=== PATIENT | female | born 1990 | race Two or more races ===

== ENCOUNTER 2018-06-10 19:51 | Emergency (ER) | payer MEDICAID ==
[~2018-06-10] VITALS: Ht 157.5 cm; Wt 54.4 kg
[~2018-06-10 19:51] MED LIST: PREN1TAB59 PO
[2018-06-10 20:00] VITALS: BP 108/74
--- NOTE | 2018-06-10 20:10 | ER.PDOC ---
General Chief Complaint: Requesting Medical Care Stated Complaint: LESS THAN 20 WKS Time seen by MD: 20:10 Source: patient Exam Limitations: no limitations History of Present Illness Initial Comments patient having several days of low abdominal cramping and is currently approximately 2 weeks , , she state she was seen at a clinic in another area twice already and had a pos preg test, she states she had a uti and was on amoxicillin, no pain with urnination no blood in urine she stats she has low cramping in pelvis, no vag discharge or fever she does have some mild right flank pain but no upper abd pain. Timing/Duration: other Severity/Quality: mild Location of Pain: pelvic pain : 2 Para: 1 Care: clinic Associated Symptoms: denies symptoms Allergies: Coded Allergies: aripiprazole (Unverified Allergy, Unknown, 09/19/13) Home Meds Reported Medications Vits W-Ca,Fe,Fa(<1MG) ( VITAMINS) 1 Each Tablet, 1 TAB PO DAILY , #90 TAB 3 Refills 04/15/15 Past Medical History Surgical History: no surgical history Review of Systems Constitutional: denies fever EENTM: denies eye pain Respiratory: denies cough Cardiovascular: denies chest pain Gastrointestinal: denies diarrhea, denies vomiting Genitourinary: denies burning, denies discharge, denies dysuria, denies frequency, denies hematuria Musculoskeletal: denies back pain, denies muscle pain Skin: denies rash Psychiatric/Neurological: denies headache Endocrine: denies flushing Hematologic/Lymphatic: denies anemia, denies blood clots Physical Exam General Appearance: No Apparent Distress, WD/WN EENT: eyes nml inspection Neck: nml inspection Cardiovascular/Respiratory: Regular Rate, Rhythm Abdomen: Normal Bowel Sounds, Non Tender Back: nml inspection Extremities: Normal Range of Motion, Non-Tender Neurologic/Psychiatric: No Motor/Sensory Deficits, Alert, Normal Mood/Affect Skin: Normal Color Lymphatic: No Adenopathy Comments mild pain to palpation suprapubic and bilat adnexal no guarding or rebound or hernia Results/Orders Results/Orders Orders - KARMENJERMAINE GUTIERREZ MD Cbc With Auto Diff (06/10/18 20:14) Comprehensive Metabolic Panel (06/10/18 20:14) Us Tv-Ob (06/10/18 20:14) Urinalysis (06/10/18 20:14) Saline Lock (06/10/18 20:14) Hcg, Quantitative (06/10/18 20:14) Us Preg Before 14 Wks (06/10/18 ) Laboratory Tests Test 06/10/18 20:00 06/10/18 20:22 Urine Collection Type VOID Urine Color YELLOW (YELLOW) Urine Appearance CLOUDY (CLEAR) H Urine Bilirubin NEGATIVE MG/DL (NEGATIVE) Urine Ketones NEGATIVE (NEGATIVE) Urine Specific [place] 1.015 (1.005-1.035) Urine pH 8 (5.0-6.0) Urine Protein NEGATIVE (NEGATIVE) Urine Urobilinogen NORMAL (NEGATIVE) Urine Nitrate NEGATIVE (NEGATIVE) Urine Leukocyte Esterase 100/ul 1+ (NEGATIVE) Urine Blood NEGATIVE (NEGATIVE) Urine RBC 0-2 RBC/HPF (NONE SEEN) Urine WBC 0-2 WBC/HPF (0-2) Urine Squamous Epithelial Cells MODERATE #/HPF (FEW) Urine Amorphous Sediment LARGE (NONE SEEN) Urine Bacteria NONE SEEN (NONE SEEN) Urine Glucose NORMAL (NEGATIVE) White Blood Count 9.1 10^3/uL (4.5-11.0) Red Blood Count 4.01 10^6/uL (4.00-5.20) Hemoglobin 12.9 g/dL (12.0-15.0) Hematocrit 37.5 % (36.0-46.0) Mean Corpuscular Volume 93.5 fL (78-100) Mean Corpuscular Hemoglobin 32.2 pg (26-34) Mean Corpuscular Hemoglobin Concent 34.4 g/dL (33-37) Red Cell Distribution Width 13.3 % (11.5-14.5) Platelet Count 305 10^3/uL (150-400) Mean Platelet Volume 9.3 fL (7.8-11.0) Neutrophils (%) (Auto) 56.8 % (41.0-85.0) Lymphocytes (%) (Auto) 30.8 % (24.0-44.0) Monocytes (%) (Auto) 8.6 % (5.0-12.0) Neutrophils # (Auto) 5.1 10^3/uL (1.8-7.7) Lymphocytes # (Auto) 2.8 10^3/uL (1.0-4.8) Monocytes # (Auto) 0.8 10^3/uL (0.3-0.8) Absolute Immature Granulocyte (auto 0.01 10^3 u/L (0-2) Eosinophils % 3.3 % (0.0-5.0) Basophils % 0.4 % (0.0-0.2) H Basophils # 0.0 10^3/uL (0.0-0.1) Eosinophil Count 0.3 10^3/uL (0.0-0.2) H Sodium Level 138 mmol/L (132-145) Potassium Level 4.1 mmol/L (3.6-5.2) Chloride Level 105.0 mmol/L (96-109) Carbon Dioxide Level 26.1 mmol/L (20.0-32) Anion Gap 11.0 Blood Urea Nitrogen 7 mg/dL (7-18) Creatinine 0.59 mg/dL (0.59-1.40) Estimated GFR () 150.3 (>/=60) BUN/Creatinine Ratio 11.0 Glucose Level 67 mg/dL (70-110) L Calcium Level 8.9 mg/dL (8.4-10.5) Total Bilirubin 0.3 mg/dL (0.2-1.0) Aspartate Amino Transferase (AST) 15 U/L (0-35) Alanine Aminotransferase (ALT) 19 U/L (12-78) Alkaline Phosphatase 61 U/L (50-136) Total Protein 7.4 g/dL (6.4-8.2) Albumin 4.0 g/dL (3.4-5.0) Globulin 3.4 Human Chorionic Gonadotropin, Quant 4115 mIU/mL Percent Immature Gran (Cell Imm) 0.10 % (0.00-0.50) Departure Time of Disposition: 22:17 Disposition: 01 HOME, SELF-CARE Impression: Primary Impression: Threatened Condition: Stable Patient Instructions: Threatened Miscarriage Referrals: PCP,UNKNOWN (PCP) PRIMARY CARE PROVIDER BAIRON CURRIE DO Additional Instructions: return for any worsening symptoms Duration or Time Spent with Pa: JERMAINE NGUYEN MD Jun 10, 2018 20:10
[2018-06-10 20:27] LABS: BASOPHIL % 0.4 % (0.0-0.2); EOSINOPHIL # 0.3 10^3/uL (0.0-0.2); EOSINOPHIL % 3.3 % (0.0-5.0); HEMOGLOBIN 12.9 g/dL (12.0-15.0); LYMPHOCYTES # 2.8 10^3/uL (1.0-4.8); LYMPHOCYTES % 30.8 % (24.0-44.0); MEAN CELL HGB 32.2 pg (26-34); MEAN CELL HGB CONCENTRATION 34.4 g/dL (33-37); MEAN CORP VOLUME 93.5 fL (78-100); MEAN PLATELET VOLUME 9.3 fL (7.8-11.0); MONOCYTES # 0.8 10^3/uL (0.3-0.8); MONOCYTES % 8.6 % (5.0-12.0); NEUTROPHIL # 5.1 10^3/uL (1.8-7.7); NEUTROPHILS % 56.8 % (41.0-85.0); RED CELL DISTRIBUTION WIDTH 13.3 % (11.5-14.5); WHITE BLOOD CELL 9.1 10^3/uL (4.5-11.0)
[2018-06-10 21:04] LABS: CALCIUM 8.9 mg/dL (8.4-10.5); CARBON DIOXIDE 26.1 mmol/L (20.0-32)
[2018-06-10 21:13] LABS: BILIRUBIN,URINE NEGATIVE (NEGATIVE); UROBILINOGEN,URINE NORMAL (NEGATIVE)
[2018-06-10 21:25] LABS: APPEARANCE,URINE CLOUDY (CLEAR); UA COLOR YELLOW (YELLOW)
[2018-06-10 21:36] VITALS: BP 103/56
--- NOTE | 2018-06-10 21:58 | DIREP ---
PROCEDURE:US OB 1ST TRI - TV COMPARISON:None. INDICATIONS: with low abd cramping TECHNIQUE:Transabdominal and endovaginal pelvic ultrasound images were obtained. Endovaginal images were obtained to optimally evaluate the and maternal adnexal structures. FINDINGS: GESTATIONAL SAC:7 mm intrauterine fluid collection may represent a gestational sac but there is no surrounding decidual reaction.. YOLK SAC: Not present POLE: Not detected CARDIAC ACTIVITY:Not detected UTERUS:Normal contours 7.0 x 4.1 x 5.4 cm OVARIES:Right ovary measures 2.9 x 2.0 x 2.7 cm, left ovary 2.7 x 1.7 x 1.7 cm CUL-DE-SAC:No free fluid OTHER: Negative. CONCLUSION: < unable to confirm intrauterine . 7 mm intrauterine fluid collection could represent a very early gestational sac but ectopic cannot be excluded. No adnexal masses or free fluid. Follow-up imaging with serial beta HCG recommended as the patient remains at risk for ectopic. Dictated by: Kuldeep Jaramillo MD on 06/10/2018 at 09:53 PM
[2018-06-10 22:20] VITALS: BP 101/57
[2018-06-11 04:30] VITALS: BP 101/57
== END 2018-06-10 22:30 | disposition home or self-care (01) ==
LOC: ER 19:51
DX: O20.0 Threatened abortion (principal); Z3A.01 Less than 8 weeks gestation of pregnancy
CPT/HCPCS: 36415; 76801; 76817; 80053; 81000; 84702; 85025; 99285

== ENCOUNTER → 2018-07-20 | Outpatient (CLI) | payer MEDICAID ==
[2018-07-20 16:22] LABS: BASOPHIL % 0.3 % (0.0-0.2); EOSINOPHIL # 0.2 10^3/uL (0.0-0.2); EOSINOPHIL % 1.8 % (0.0-5.0); HEMOGLOBIN 13.1 g/dL (12.0-15.0); LYMPHOCYTES # 2.8 10^3/uL (1.0-4.8); LYMPHOCYTES % 26.9 % (24.0-44.0); MEAN CELL HGB 31.6 pg (26-34); MEAN CELL HGB CONCENTRATION 34.7 g/dL (33-37); MEAN CORP VOLUME 91.1 fL (78-100); MEAN PLATELET VOLUME 9.8 fL (7.8-11.0); MONOCYTES # 0.8 10^3/uL (0.3-0.8); MONOCYTES % 8.1 % (5.0-12.0); NEUTROPHIL # 6.4 10^3/uL (1.8-7.7); NEUTROPHILS % 62.8 % (41.0-85.0); RED CELL DISTRIBUTION WIDTH 13.1 % (11.5-14.5); WHITE BLOOD CELL 10.2 10^3/uL (4.5-11.0)
== END | disposition home or self-care (01) ==
LOC: LAB 16:00
PROVIDERS: ATTEND Obstetrics & Gynecology
DX: Z34.81 Encounter for supervision of other normal pregnancy, first trimester (principal)
CPT/HCPCS: 36415; 85025; 86318; 86592; 86762; 86900